=== PATIENT | female | born 1995 | race Two or more races ===

== ENCOUNTER 2017-05-03 14:58 | Emergency (ER) | payer BC ==
[~2017-05-03] VITALS: Ht 162.6 cm; Wt 76.7 kg
[2017-05-03 15:01] VITALS: BP 148/84
[2017-05-03] MEDS ORDERED: SODIUM CHLORIDE FLUSH 10ML SYR IVF ONE (16:00)
[2017-05-03 16:06] LABS: MEAN CORPUSCULAR HGB CONC 34.1 g/dL (32.4-35.8); MEAN CORPUSCULAR VOLUME 88.2 fL (80-100); MEAN PLATELET VOLUME 8.8 fL (7.4-10.4); PLATELET COUNT 328 x10^3/uL (130-400); RED BLOOD COUNT 4.99 x10^6/uL (3.82-5.3)
[2017-05-03 16:20] LABS: ALBUMIN 3.7 g/dL (3.4-5.0); ANION GAP 9 mmol/L (5-15); CALCIUM 9.3 mg/dL (8.5-10.1); CHLORIDE 108 mmol/L (98-107)
[2017-05-03 16:38] LABS: CREATININE 0.44 mg/dL (0.55-1.02)
[2017-05-03 16:49] LABS: MD YES
[2017-05-03 16:50] LABS: BASOS#(MANUAL) 0.19 x10^3/uL (0-0.3); BASOS% (MANUAL) 1 % (0-1); LYMPH#(MANUAL) 1.85 x10^3/uL (1-6.1); LYMPHS% (MANUAL) 10 % (22-44); MONOS#(MANUAL) 0.93 x10^3/uL (0.3-2.7); MONOS% (MANUAL) 5 % (2-9); SEG#(MANUAL) 15.54 x10^3/uL (1.8-8); SEGS% (MANUAL) 84 % (42-75)
[2017-05-03 16:51] LABS: <PLATELET ESTIMATE> ADEQUATE; <PLT MORPHOLOGY> NORMAL PLT MORPH; <RBC MORPHOLOGY> NORMAL
== END 2017-05-03 18:05 | disposition home or self-care (01) ==
LOC: ED 17:59
DX: O20.0 Threatened abortion (principal); Z3A.12 12 weeks gestation of pregnancy
CPT/HCPCS: 36415; 76801; 80048; 82040; 84702; 85025; 86901; 99285